=== PATIENT | male | born 1975 | race Caucasian/White ===

== ENCOUNTER 2023-06-15 12:27 | Outpatient (CLI) | payer MEDICARE ==
[~2023-06-15 12:27] MED LIST: Magnevist 469MG/ML 20 ML VIAL ONE
== END 2023-06-15 12:28 | disposition home or self-care (01) ==
LOC: CSHMRI 12:27
PROVIDERS: ATTEND Neurological Surgery
DX: C71.9 Malignant neoplasm of brain, unspecified (principal)
CPT/HCPCS: 70553; 94060; 94664; 94726; 94729; 94760; A9579

== ENCOUNTER 2024-06-30 09:27 | Outpatient (CLI) | payer MEDICARE | END 2024-06-30 09:28 | disposition home or self-care (01) | LOC: CSHMRI 09:27 | PROVIDERS: ATTEND Neurological Surgery | DX: D49.6 Neoplasm of unspecified behavior of brain (principal); Z98.890 Other specified postprocedural states | CPT/HCPCS: 70553; 76376 ==

== ENCOUNTER 2024-09-06 09:00 | Emergency (ER) | payer MEDICARE ==
[2024-09-06] MEDS ORDERED: Lidocaine 1% w/Epinephrine 1:200K 30 ML VIAL ONE (09:51)
[2024-09-06] MEDS ORDERED: Acetaminophen 500 MG TAB ONE (09:51)
== END 2024-09-06 10:58 | disposition home or self-care (01) ==
LOC: CSHERS 09:00
DX: L02.415 Cutaneous abscess of right lower limb (principal); L03.115 Cellulitis of right lower limb
CPT/HCPCS: 10060

== ENCOUNTER 2025-06-20 11:30 | Outpatient (CLI) | payer MEDICARE | END 2025-06-20 11:31 | disposition home or self-care (01) | LOC: CSHMRI 11:30 | PROVIDERS: ATTEND Neurological Surgery | DX: C71.9 Malignant neoplasm of brain, unspecified (principal) | CPT/HCPCS: 70553; 76376 ==